=== PATIENT | male | born 2000 | race Two or more races ===

== ENCOUNTER 2024-07-28 12:00 | Emergency (ER) | payer MEDICAID, SELFPAY ==
[2024-07-28 12:02] VITALS: BMI 28.7
--- NOTE | 2024-07-28 12:17 | PD.EDWOUND ---
ED Wound/Laceration-RME/HPI General Chief Complaint: Wound/Laceration Stated Complaint: Bleeding from mandaeism region Time Seen by Provider: 07/28/24 12:06 Arrival date/time: 07/28/24 12:00 24-year-old male with no significant medical close presents to the Emergency Department recently had some bleeding today from the right side of his face patient has no bleeding at this time Limitations: no limitations Related Data Previous Rx's ?Medication ?Instructions ?Recorded ibuprofen 600 mg tablet (IBU) 600 mg PO TID PRN fever or pain 07/06/17 #30 tabs Allergies Allergy/AdvReac Type Severity Reaction Status Date / Time No Known Allergies Allergy Verified 07/28/24 12:02 Review of Systems Review of Systems Systems Reviewed: All systems reviewed, normal except as documented Constitutional Constitutional: Reports system reviewed and no additional complaints, except as documented, Denies fever(s) and Denies headache(s) Eyes Eyes: Reports system reviewed and no additional complaints, except as documented and Denies blurry vision ENT Ears, Nose, Mouth, and Throat: Reports system reviewed and no additional complaints, except as documented, Denies headache(s), Denies nasal congestion and Denies nasal discharge Cardiovascular Cardiovascular: Reports system reviewed and no additional complaints, except as documented, Denies chest pain and Denies dyspnea Respiratory Respiratory: Reports system reviewed and no additional complaints, except as documented, Denies chest congestion, Denies cough and Denies dyspnea Gastrointestinal Gastrointestinal: Reports system reviewed and no additional complaints, except as documented and Denies abdominal pain Integumentary/Breasts Skin/Breast: Reports system reviewed and no additional complaints, except as documented, Denies rash and Reports other (Bleeding from right side of mandaeism region) Neurologic Neurologic: Reports system reviewed and no additional complaints, except as documented, Reports as per HPI and Denies headache(s) Past Medical History Past Medical History CARDIAC: Negative Congestive Heart Failure RESPIRATORY: Negative Chronic Obstructive Pulmonary Disease (COPD) GENITOURINARY: Negative Renal Disease ENDOCRINE: Negative Diabetes Mellitus Type 1 or Diabetes Mellitus Type 2 Social History SMOKING STATUS: Never smoker ED Exam General Limitations: Present no limitations General appearance: Present alert and in no apparent distress Expanded Head Exam Head image:  1. Patient feels a small pimple that was bleeding no bleeding at this time Eye Eye exam: Present normal appearance, PERRL and EOMI ENT ENT exam: Present normal exam, normal oropharynx and mucous membranes moist Neck Neck exam: Present normal inspection, full ROM and trachea midline Chest Chest inspection: Present normal inspection and symmetric chest wall rise Respiratory Respiratory exam: Present normal lung sounds bilaterally Cardiovascular Cardiovascular exam: Present regular rate, normal rhythm and normal heart sounds Abdominal Exam Abdominal exam: Present soft and normal bowel sounds Extremities Exam Extremities exam: Present normal inspection and full ROM Back Exam Back exam: Present normal inspection and full ROM Neurological Exam Neurological exam: Present alert, oriented X3 and CN II-XII intact Psychiatric Psychiatric exam: Present normal affect and normal mood Skin Skin exam: Present warm, dry, intact and normal color Course Quality Measures none Vital Signs Vital signs: Vital Signs Temperature 98.7 F 07/28/24 12:18 Pulse Rate 76 07/28/24 12:18 Respiratory Rate 16 07/28/24 12:18 Blood Pressure 111/71 07/28/24 12:18 Pulse Oximetry (%) 98 07/28/24 12:18 Oxygen Delivery Method Room Air 07/28/24 12:18 O2 saturation 98% room air within normal limits Wound / Laceration MDM Narrative MDM Narrative:: 24-year-old male with no significant medical close presents to the Emergency Department recently had some bleeding today from the right side of his face patient has no bleeding at this time On exam patient well-appearing patient does not appear toxic in no acute distress On exam patient appears to have a mandaeism that was bleeding no longer is bleeding Band-Aid applied Patient discharged home in no distress to follow-up with primary care doctor in the next 24 to 48 hours and for any worsening symptoms to return to the ER immediately Patient data External records reviewed:: [facility] previous records Clinical information provided by:: patient Social determinants that could affect healthcare access:: none Patient has the following chronic illnesses:: None How is presenting disease/condition affected by chronic disease/condition?: no chronic disease Evaluation data The following diagnostics were reviewed and interpreted by me:: other (specify) (N/A) Lab and/or radiology exams considered but not ordered:: Consider not ordered Interpretation Summary: N/A Medications / Prescriptions Medications or Prescriptions considered but not ordered:: No meds given Medication administrations:: No meds given Consultations Consultation(s) initiated? (list below): No Diagnosis Wound Differential Diagnosis: abscess, abrasion, avulsion of skin and other (Bleeding) Most likely diagnosis given after review of the tests above:: Bleeding Admission Indicated Admission indicated?: not indicated Admission Request Was there a request for admission?: No Disposition Plan Disposition Plan: Discharge Discharge Attestation Discharge Attestation: The patient and all family members were given an opportunity to ask questions and understood the discharge instructions. Discharge instructions specifically effects, indications for sooner follow up or return to the emergency department, and the expected course of current diagnosis. Patient condition: Stable Discharge Plan Plan Patient Disposition: HOME (Self Care) Discharge Disposition comment: Stable Prescriptions/Referrals Prescriptions/Med Rec: No Action ibuprofen [IBU] 600 mg tablet 600 mg PO TID PRN (Reason: fever or pain) Qty: 30 0RF Problem List Clinical Impression: Bleeding Patient/Caregiver Discharge Instructions Education Materials: First Aid: Bleeding Additional Instructions: Please follow up with your primary care doctor in the next 24-48hrs for any worsening symptoms return here immediately Print Language: [place] Stand Alone Forms: Luanne Award Info., Patient Portal Info Letter SARAH/PARRIS Supervising Physician SARAH/PARRIS Supervising Physician: Dr [email or web address]
[2024-07-28 12:18] VITALS: BP 111/71; PULSE 76; RESP 16; TEMP 37.1; O2SAT 98
== END 2024-07-28 12:43 | disposition home or self-care (01) ==
LOC: SERX 12:32
PROVIDERS: Emergency Provider Family Medicine
DX: R23.3 Spontaneous ecchymoses (principal)
CPT/HCPCS: 99281